=== PATIENT | female | born 1990 | race Native Hawaiian/Other Pacific Islander ===

== ENCOUNTER 2021-07-24 16:04 | Emergency (ER) | payer OTHER ==
[~2021-07-24] VITALS: Ht 144.8 cm; Wt 78.9 kg
[2021-07-24 16:05] VITALS: BP 142/90; TEMP 97.6
== END 2021-07-24 16:55 | disposition home or self-care (01) ==
LOC: ED 16:04
DX: S81.832A Puncture wound without foreign body, left lower leg, initial encounter (principal); W54.0XXA Bitten by dog, initial encounter; Y92.89 Other specified places as the place of occurrence of the external cause
CPT/HCPCS: 90715; 96372; 99283; J0690; J1885

== ENCOUNTER 2021-08-04 18:42 | Emergency (ER) | payer OTHER ==
[~2021-08-04] VITALS: Ht 144.8 cm; Wt 81.6 kg
[2021-08-04 19:25] VITALS: BP 127/86; TEMP 98.8
== END 2021-08-04 19:30 | disposition home or self-care (01) ==
LOC: ED 18:42
DX: S80.12XD Contusion of left lower leg, subsequent encounter (principal); W54.0XXD Bitten by dog, subsequent encounter; Y92.89 Other specified places as the place of occurrence of the external cause
CPT/HCPCS: 99281